=== PATIENT | female | born 1985 | race Two or more races ===

== ENCOUNTER 2017-11-21 15:34 | Emergency (ER) | payer MEDICAID ==
[~2017-11-21] VITALS: Ht 160 cm; Wt 77.1 kg
[2017-11-21 17:23] VITALS: BP 128/66
== END 2017-11-21 18:11 | disposition home or self-care (01) ==
LOC: ER 15:34
DX: R05 Cough (principal); R09.81 Nasal congestion; Z53.21 Procedure and treatment not carried out due to patient leaving prior to being seen by health care provider